=== PATIENT | female | born 1980 | race Caucasian/White ===

== ENCOUNTER → 2016-06-06 | Outpatient (CLI) | payer OTHER ==
[~2016-06-06] MED LIST: ALBU17IN INH; BACT800T5 PO; DRIS50002 PO; LYRI300C PO; NORCOTAB PO; SENN1TAB2 PO; SYMB16INH INH; TIZA4CAP3 PO; TRAM50TA2 PO
--- NOTE | 2016-06-06 16:12 | REP ---
MRI CERVICAL SPINE WITHOUT CONTRAST: HISTORY: Neck pain. COMPARISON: 02/03/2014. A small central disc protrusion is present at the C3-4 level. There is minimal effacement of the thecal sac without spinal cord compression. The C3 neural foramina are patent. A disc bulge and small central disc extrusion are present at the C4-5 level. The disc extrusion is slightly increased in size. There is superior migration of disc material. There is mild effacement of the thecal sac without spinal cord compression. The C4 neural foramina are patent. A disc bulge is present at the C5-6 level. There is moderate effacement of the thecal sac without spinal cord compression. Uncinate process hypertrophy is present on the right. This produces minimal narrowing of the right C5 neural foramen. The left C5 neural foramen is patent. The patient is status post C6-7 anterior spinal fusion. A fixation plate and bone graft material are present. Small posterior osteophytes are present. There is minimal effacement of the thecal sac without spinal cord compression. The C6 neural foramina are patent. There is no other disc bulge or herniation. The remaining neural foramina are patent. The spinal cord is normal in signal intensity. There is no intradural extramedullary lesion. Normal signal intensity is present in the cervical vertebral bodies. There is loss of the normal lordotic curve. IMPRESSION: 1. The patient is status post C6-7 anterior spinal fusion. There is anatomic alignment of the cervical spine. 2. There is cervical spondylosis at the C3-4 through C6-7 levels without spinal cord compression. The disc extrusion at the C4-5 level is slightly increased in size. The right C5 foraminal narrowing is a new finding. Signed by Oneil Gallegos MD 06/06/2016 04:15 P
== END ==
LOC: M RAD 12:58
PROVIDERS: ATTEND Nurse Practitioner Family
DX: M54.2 Cervicalgia (principal); M51.27 Other intervertebral disc displacement, lumbosacral region; M51.37 Other intervertebral disc degeneration, lumbosacral region; M46.1 Sacroiliitis, not elsewhere classified; M70.62 Trochanteric bursitis, left hip; M47.812 Spondylosis without myelopathy or radiculopathy, cervical region; M54.16 Radiculopathy, lumbar region; M79.1 Myalgia; M47.817 Spondylosis without myelopathy or radiculopathy, lumbosacral region; M99.71 Connective tissue and disc stenosis of intervertebral foramina of cervical region

== ENCOUNTER → 2016-06-24 | Outpatient (CLI) | payer OTHER ==
--- NOTE | 2016-06-25 08:27 | REP ---
MRI study abdomen without and with IV gadolinium: History: Epigastric pain. Abnormal findings on CT study. Question enlargement of the left lobe of the liver on hepatobiliary scan from July 22, 2013. Gadolinium enhancement dose: 15 ml of intravenous ProHance is administered. Technique: Axial and coronal T1 and T2-weighted scans are obtained. Sequences include true FISP, spin echo, turbo spin-echo, in and out of phase, and dynamically acquired post gadolinium enhanced T1 fat sat 2-D gradient echo images. Findings: There is a mild levoconvex curvature in the lumbar spine. Cortical and medullary bone signal intensity are normal. The liver has a horizontal configuration with a somewhat prominent left lobe as seen on the nuclear study from 2013. No focal liver lesion is seen however. No intrahepatic vascular lesion is noted. Overall, the liver is not felt to be enlarged. The splenic is normal in size and homogeneous. 11.2 cm greatest dimension. No ascites is seen. No pleural effusion is noted. No pancreatic lesion is appreciated. Dynamically acquired post gadolinium enhanced images show no abnormal enhancing focus in the liver, spleen or in either kidney. Pancreas is unremarkable on postcontrast images. No evidence of adrenal mass is seen on either side. No large or small bowel lesion is seen. Impression: The liver is somewhat horizontally configured across the abdomen as a normal variant. No other features to suggest liver disease. Mild levoconvex curvature in the lumbar spine. Otherwise negative. Signed by Maicol Ruggiero MD 06/25/2016 08:41 A
== END ==
LOC: M RAD 17:06
PROVIDERS: ATTEND Internal Medicine Gastroenterology
DX: R10.13 Epigastric pain (principal)

== ENCOUNTER → 2017-10-05 | Outpatient (CLI) | payer OTHER | LOC: M RAD 08:09 | DX: M48.02 Spinal stenosis, cervical region (principal); Z98.1 Arthrodesis status | CPT/HCPCS: 72141 ==

== ENCOUNTER → 2021-08-22 | Outpatient (CLI) | payer OTHER ==
[~2021-08-22] MED LIST changes: -DRIS50002 PO; +DRIS50003 PO; +HYDR-3715 PO; -NORCOTAB PO; +SENN-53 PO; -SENN1TAB2 PO; +TIZA4CAP PO; -TIZA4CAP3 PO
[2021-08-22 11:08] LABS: BASO % 0.9 % (0.0-1.0); EOS % 0.9 % (0.0-3.0); HEMATOCRIT 42.7 % (36.0-47.0); HEMOGLOBIN 14.4 g/dl (12.0-15.5); LYMPH # 1.6 10^3/uL (1.5-5.0); LYMPH % 37.2 % (24.0-44.0); MEAN CORPUSCULAR HEMOGLOBIN 33.1 pg (27.0-33.0); MEAN CORPUSCULAR HGB CONC 33.7 g/dl (32.0-36.5); MEAN CORPUSCULAR VOLUME 98.2 fl (80.0-96.0); MONO # 0.3 10^3/uL (0.0-0.8); MONO % 7.7 % (2.0-8.0); NEUTROPHILS # 2.3 10^3/uL (1.5-8.5); NEUTROPHILS % 53.1 % (36.0-66.0); PLATELET COUNT, AUTOMATED 214 10^3/uL (150-450); RED BLOOD COUNT 4.35 10^6/uL (4.00-5.40); WHITE BLOOD COUNT 4.4 10^3/uL (4.0-10.0)
[2021-08-22 12:03] LABS: ALBUMIN 4.1 GM/DL (3.2-5.2); ALT/SGPT 20 U/L (12-78); BILIRUBIN,TOTAL 0.8 MG/DL (0.2-1.0); BLOOD UREA NITROGEN 8 MG/DL (7-18); CALCIUM LEVEL 9.2 MG/DL (8.5-10.1); CARBON DIOXIDE LEVEL 29 MEQ/L (21-32); CHLORIDE LEVEL 107 MEQ/L (98-107); CREATININE FOR GFR 0.78 MG/DL (0.55-1.30); GLOMERULAR FILTRATION RATE > 60.0 (>58); GLUCOSE, FASTING 93 MG/DL (70-100); POTASSIUM SERUM 3.9 MEQ/L (3.5-5.1); SODIUM LEVEL 140 MEQ/L (136-145); TOTAL PROTEIN 6.9 GM/DL (6.4-8.2)
== END ==
LOC: M LAB 10:20
PROVIDERS: ATTEND Internal Medicine Gastroenterology
DX: R10.13 Epigastric pain (principal); R19.7 Diarrhea, unspecified; R63.4 Abnormal weight loss

== ENCOUNTER → 2021-08-26 | Outpatient (REF) | payer OTHER | LOC: M LAB REF 12:58 | PROVIDERS: ATTEND Internal Medicine Gastroenterology | DX: R10.13 Epigastric pain (principal); R19.7 Diarrhea, unspecified; R63.4 Abnormal weight loss ==

== ENCOUNTER → 2021-09-11 | Outpatient (CLI) | payer OTHER ==
[~2021-09-11] MED LIST changes: +ALBU8.5H; +BUSP10TA PO; +CETI-24 PO; +DIAZ5TAB; +LOPE1CAP5 PO; +ONDA4TAB6; +PROCTO-MED; +TRAZ-257 PO; +VITA100093
== END ==
LOC: M LABSMTC 09:46
PROVIDERS: ATTEND Anesthesiology
DX: Z20.822 Contact with and (suspected) exposure to COVID-19 (principal)

== ENCOUNTER 2021-09-16 11:32 | Day surgery (SDC) | payer OTHER ==
[~2021-09-16] VITALS: Ht 162.6 cm; Wt 49.9 kg
[~2021-09-16 11:32] MED LIST changes: +NS 1,000 ML IV ONE
[2021-09-16] MEDS ORDERED: MIDAZOLAM INJ 2MG/2ML VIAL (J2250 PER 1MG) As Ordered ONE (12:27)
[2021-09-16] MEDS ORDERED: fentaNYL 100 MCG/2 ML INJECTION As Ordered ONE (12:28)
[2021-09-16] MEDS ORDERED: ePHEDrine SULFATE 25 MG/5 ML(5MG/ML) SYRINGE As Ordered ONE (12:53)
[2021-09-16] MEDS ORDERED: propofoL 200 MG/20 ML VIAL As Ordered ONE (12:53)
[2021-09-16 13:40] VITALS: BP 103/55
== END 2021-09-16 13:43 | disposition home or self-care (01) ==
LOC: M OPP 11:32
PROVIDERS: ATTEND Internal Medicine Gastroenterology
DX: K64.0 First degree hemorrhoids (principal); R10.13 Epigastric pain; R19.7 Diarrhea, unspecified; R63.4 Abnormal weight loss; K31.89 Other diseases of stomach and duodenum; Z79.51 Long term (current) use of inhaled steroids; Z79.899 Other long term (current) drug therapy; Z91.011 Allergy to milk products; Z91.048 Other nonmedicinal substance allergy status
CPT/HCPCS: 43239; 45380; 88305; J2250; J3010

== ENCOUNTER → 2021-10-22 | Outpatient (CLI) | payer OTHER ==
[~2021-10-22] MED LIST changes: +E-Z-GAS II EFFERVESCENT PACKET (SODIUM BICARB./CITRIC ACID/SIMETHICONE) As Ordered ONE; +E-Z-HD 98% w/w 340GM SUSP BTL As Ordered ONE; +E-Z-PAQUE 96% w/w SUSP 176GM BTL As Ordered ONE; -NS 1,000 ML IV ONE
== END ==
LOC: M RAD 08:45
PROVIDERS: ATTEND Internal Medicine Gastroenterology
DX: R10.9 Unspecified abdominal pain (principal); R63.4 Abnormal weight loss; R19.7 Diarrhea, unspecified

== ENCOUNTER 2021-11-24 10:17 | Emergency (ER) | payer OTHER ==
[~2021-11-24 10:17] MED LIST changes: -E-Z-GAS II EFFERVESCENT PACKET (SODIUM BICARB./CITRIC ACID/SIMETHICONE) As Ordered ONE; -E-Z-HD 98% w/w 340GM SUSP BTL As Ordered ONE; -E-Z-PAQUE 96% w/w SUSP 176GM BTL As Ordered ONE
[2021-11-24 12:07] VITALS: BP 121/73
== END 2021-11-24 12:12 | disposition home or self-care (01) ==
LOC: M ED 10:17
DX: Z04.6 Encounter for general psychiatric examination, requested by authority (principal); F43.0 Acute stress reaction; J45.909 Unspecified asthma, uncomplicated; Z79.899 Other long term (current) drug therapy; Z91.011 Allergy to milk products; Z91.018 Allergy to other foods

== ENCOUNTER 2022-11-25 19:13 | Emergency (ER) | payer OTHER ==
[~2022-11-25] VITALS: Ht 162.6 cm; Wt 49.9 kg
[2022-11-25] MEDS ORDERED: NS 1,000 ML IV ONE (19:45)
[2022-11-25 19:46] LABS: BASO # 0.1 10^3/uL (0.0-0.2); BASO % 1.3 % (0.0-1.0); EOS # 0.3 10^3/uL (0.0-0.5); EOS % 3.5 % (0.0-3.0); HEMATOCRIT 40.6 % (36.0-47.0); HEMOGLOBIN 13.7 g/dl (12.0-15.5); LYMPH # 2.9 10^3/uL (1.5-5.0); LYMPH % 38.8 % (24.0-44.0); MEAN CORPUSCULAR HEMOGLOBIN 33.2 pg (27.0-33.0); MEAN CORPUSCULAR HGB CONC 33.7 g/dl (32.0-36.5); MEAN CORPUSCULAR VOLUME 98.3 fl (80.0-96.0); MONO # 0.5 10^3/uL (0.0-0.8); MONO % 6.5 % (2.0-8.0); NEUTROPHILS # 3.7 10^3/uL (1.5-8.5); NEUTROPHILS % 49.8 % (36.0-66.0); PLATELET COUNT, AUTOMATED 210 10^3/uL (150-450); RED BLOOD COUNT 4.13 10^6/uL (4.00-5.40); WHITE BLOOD COUNT 7.4 10^3/uL (4.0-10.0)
[2022-11-25 20:17] LABS: CK-MB VALUE MASS < 1.0 NG/ML (<3.6)
[2022-11-25 20:19] LABS: BLOOD UREA NITROGEN 13 MG/DL (9-23); CALCIUM LEVEL 8.1 MG/DL (8.5-10.1); CARBON DIOXIDE LEVEL 27 MMOL/L (20-31); CHLORIDE LEVEL 108 MMOL/L (98-107); CREATININE FOR GFR 0.75 MG/DL (0.55-1.30); GLOMERULAR FILTRATION RATE > 60.0 (>58); GLUCOSE, FASTING 95 MG/DL (60-100); POTASSIUM SERUM 3.6 MMOL/L (3.5-5.1); SODIUM LEVEL 141 MMOL/L (136-145)
[2022-11-25 20:22] LABS: THYROID STIMULATING HORMONE 1.249 uIU/ML (0.55-4.78)
[2022-11-25 20:23] LABS: CPK CREATINE PHOSPHOKINASE 94 U/L (34-145); MB/CK RELATIVE INDEX 1.06 (< OR =4)
[2022-11-25 21:23] VITALS: BP 90/55; TEMP 96.4; O2SAT 97
== END 2022-11-25 21:32 | disposition home or self-care (01) ==
LOC: EDBD 19:13 → M ED 19:13
DX: R55 Syncope and collapse (principal); F41.9 Anxiety disorder, unspecified; F32.A Depression, unspecified; N80.9 Endometriosis, unspecified; F17.200 Nicotine dependence, unspecified, uncomplicated; Z91.011 Allergy to milk products; Z91.018 Allergy to other foods; Z79.899 Other long term (current) drug therapy; Z79.51 Long term (current) use of inhaled steroids

== ENCOUNTER → 2023-04-09 | Outpatient (CLI) | payer OTHER ==
[~2023-04-09] MED LIST changes: +PROHANCE 279.3MG/ML 5ML VIAL ONE
== END ==
LOC: M PLAIMG 07:38
PROVIDERS: ATTEND Podiatrist Foot & Ankle Surgery
DX: D21.22 Benign neoplasm of connective and other soft tissue of left lower limb, including hip (principal)

== ENCOUNTER → 2024-03-11 | Outpatient (CLI) | payer OTHER ==
[~2024-03-11] MED LIST changes: +ONDA-282; -ONDA4TAB6; -PROHANCE 279.3MG/ML 5ML VIAL ONE
== END ==
LOC: M RAD 17:36
PROVIDERS: ATTEND Physician Assistant
DX: M77.32 Calcaneal spur, left foot (principal); M25.572 Pain in left ankle and joints of left foot

== ENCOUNTER → 2024-04-14 | Outpatient (CLI) | payer OTHER | LOC: M RAD 14:00 | PROVIDERS: ATTEND Physician Assistant | DX: M79.672 Pain in left foot (principal) ==